=== PATIENT | male | born 1970 | race African-American/Black ===

== ENCOUNTER 2018-06-09 06:36 | Inpatient (IN) | payer MEDICARE, BC ==
[~2018-06-09] VITALS: Ht 185.4 cm; Wt 148.5 kg
--- NOTE | ~2018-06-09 | HEMODYNAMI ---
PATIENT:LEVI MOODY MEDICAL RECORD: [id number] : 66 LOCATION:[facility] D2127 ADMISSION DATE: 06/09/18 Generatedon:06/10/20188:10 Patient name: LEVI MOODY Patient #: [id number] SSN: : [birth year] Date of study: 06/10/2018 Page: Of Hemodynamic Procedure Report Patient Data Patient Demographics Procedure consent was obtained First Name: LEVI Gender: Male Last Name: HEIDY : 1970 Patient #: [id number] Age: 47 year(s) Race: Black Additional ID: [id number] Contact details [address]: [address] [place] [address] State: [place] City: [place] Zip code: [address] Past Medical History Allergies Allergen Reaction Date Comments Reported Morphine 06/10/2018 Admission Admission Data Admission Date: 06/09/2018 Admission Time: 8:03 Room #: D.2127 Weight (lbs.): 330.7 Weight (kg.): 150 Procedure Procedure Types Cath Procedure Diagnostic Procedure C [facility] w/Coronaries Procedure Description Procedure Date Procedure Date: 06/10/2018 Procedure Start Time: 8:00 Procedure End Time: 8:08 Procedure Staff Name Function Chino Medel MD Performing Physician Keagan Sheldon RT Monitor Candice Torres RT Scrub Treasure Carrington RN Nurse Procedure Data Cath Procedure Fluoroscopy Diagnostic fluoroscopy Total fluoroscopy Time: 2.4 time: 2.4 min min Diagnostic fluoroscopy Total fluoroscopy dose: 723 dose: 723 mGy mGy Contrast Material Contrast Material Type Amount (ml) Isovue 300 45 Entry Location Entry Primary Successful Side Size Upsize Upsize Entry Closure Almendarez ccessful Closure Location (Fr) 1 (Fr) 2 (Fr) Remarks Device Remarks Radial Right 6 Fr Mechanical artery Short Compression Estimated blood loss: 10 ml Diagnostic catheters Device Type Used For End Catheter Placement DIAGNOSTIC [place] 110cm 5 Procedure Fr catheter ([id number]) Procedure Complications No complications Procedure Medications Medication Administration Route Dosage 0.9% NaCl I.V. 100 ml/hr Oxygen etCO2 Nasal cannula 2 l/min Lidocaine 2% added to field 20 Heparin Flush Bag added to field 2 bags (1000units/500ml NS) Radial Cocktail added to field 1 syringe (Verapomil 2mg/Nitro 400mcg/Heparin 1500units) Versed I.V. 2 mg Fentanyl I.V. 100 mcg Versed I.V. 2 mg Fentanyl I.V. 50 mcg Versed I.V. 2 mg Versed I.V. 2 mg Hemodynamics Rest Heart Rate: 99 (bpm) Snapshots Pre Cath Intra NCS Post Cath Vital Signs Time Heart Resp SPO2 etCO2 NIBP (mmHg) Rhythm Pain Sedation Rate (ipm) (%) (mmHg) Status Level (bpm) 7:42:11 100 17 100 36.7 176/106(147) NSR 0 (11) 10(A) , No pain 7:46:58 97 14 96 27.7 168/106(135) NSR 0 (11) 10(A) , No pain 7:51:40 93 16 98 38.9 149/94(120) NSR 0 (11) 10(A) , No pain 7:56:19 95 18 98 12.7 168/96(118) NSR 0 (11) 10(A) , No pain 8:01:08 95 16 97 15.7 157/94(115) NSR 0 (11) 10(A) , No pain 8:05:44 114 20 98 16.4 155/84(116) NSR 0 (11) 10(A) , No pain Medications Time Medication Route Dose Verified Delivered Reason Notes Ef fectiveness by by 7:40:41 0.9% NaCl I.V. 100 Chino Treasure used for ml/hr Gianfranco Carrington independent film maker 7:40:47 Oxygen etCO2 2 l/min Chino Treasure used for Nasal Gianfranco Carrington procedure cannula RN 7:40:53 Lidocaine 2% added 20ml Chino Magana for local to vial Gianfranco Medel MD anesthetic field 7:40:57 Heparin Flush added 2 bags Chino Magana used for Bag to Gianfranco Medel MD procedure (1000units/500ml field NS) 7:41:04 Radial Cocktail added 1 Chino Magana used for (Verapomil to syringe Gianfranco Medel MD procedure 2mg/Nitro field 400mcg/Heparin 1500units) 7:57:24 Versed I.V. 2 mg Chino Treasure for Gianfranco Carrington sedation RN 7:57:29 Fentanyl I.V. 100 mcg Chino Treasure for Gianfranco Carrington sedation RN 8:00:52 Versed I.V. 2 mg Chino Treasure for Gianfranco Carrington sedation RN 8:00:57 Fentanyl I.V. 50 mcg Chino Treasure for Gianfranco Carrington sedation RN 8:02:32 Versed I.V. 2 mg Chino Treausre for Gianfranco Carrington sedation RN 8:04:11 Versed I.V. 2 mg Chino Treasure for Gianfranco Carrington sedation wire coiner Log Time Note 7:16:41 Keagan Sheldon RT(R) sent for patient. Start room use. 7:16:43 Diagnostic Cath status Elective 7:16:45 Signed procedure consent form obtained from patient. 7:16:48 Time tracking: Regular hours (M-F 7:00 - 5:00) 7:16:52 Plan of Care:Hemodynamics will remain stable., Cardiac rhythm will remain stable., Comfort level will be maintained., Respiratory function will remain adequate., Patient/ family verbilizes understanding of procedure., Procedure tolerated without complication., Recovers from procedure without complications.. 7:17:31 H&P Date Dictated: 06/09/2018 Within 30 days and on chart.. 7:23:00 Patient allergic to Morphine 7:32:17 Patient received from Med II to CCL 1 Alert and oriented. Tansferred to table in Supine position. 7:32:18 Warm blankets applied, and lindsey hugger turned on for patient comfort. 7:32:19 Correct patient and procedure confirmed by team. 7:32:20 ECG and BP/O2 sat monitors applied to patient. 7:40:27 Vital chart was started 7:40:41 0.9% NaCl 100 ml/hr I.V. was administered by Treasure Carrington RN; used for procedure; 7:40:47 Oxygen 2 l/min etCO2 Nasal cannula was administered by Treasure Carrington RN; used for procedure; 7:40:53 Lidocaine 2% 20ml vial added to field was administered by Chino Medel MD; for local anesthetic; 7:40:57 Heparin Flush Bag (1000units/500ml NS) 2 bags added to field was administered by Chino Medel MD; used for procedure; 7:41:04 Radial Cocktail (Verapomil 2mg/Nitro 400mcg/Heparin 1500units) 1 syringe added to field was administered by Chino Medel MD; used for procedure; 7:46:17 Baseline sample Acquired. 7:46:19 Rhythm: sinus rhythm 7:46:19 Full Disclosure recording started 7:46:20 Pre-procedure instructions explained to patient. 7:46:21 Pre-op teaching completed and patient verbalized understanding. 7:46:30 Family unavailable. 7:46:32 Patient NPO since Midnight. 7:46:33 Is the patient allergic to Iodine/contrast media? No. 7:46:35 Is patient on blood thinner?No 7:46:37 Patient diabetic? Yes. 7:46:39 If diabetic: On Metformin? No 7:46:46 Previous problem with sedation/anesthesia? No ? 7:47:03 Snore? Yes 7:47:04 Sleep apnea? Yes 7:47:05 Deviated septum? No 7:47:07 Opens mouth fully? Yes 7:47:18 Sticks out tongue? Yes 7:47:21 Airway obstruction? No ? 7:47:24 Dentures? No ? 7:47:33 Pre procedure: right dorsailis pedis pulse 1+ Palpable, but thready & weak; easily obliterated 7:47:36 Modified Ricardo's test Ulnar < 7 seconds 7:47:44 Patient pain scale 0/10 ?. 7:48:05 IV patent on arrival in right hand with 0.9% NaCl at O. 7:48:11 Lab results completed and on chart. 7:48:25 Right Radial & Right Groin area was prepped with chlora-prep and draped in sterile fashion 7:48:26 Alarms reviewed by R. N. 7:48:26 Sharps counted by scrub and verified by R.N. 7:48:33 Physician paged 7:52:14 Use device set Radial Dx or PCI 7:52:16 Tegaderm 4 x 4 (1366W) opened to sterile field. 7:52:17 ACIST Manifold (49788) opened to sterile field. 7:52:18 ACIST Hand Control (80818) opened to sterile field. 7:52:19 ACIST Syringe (55135) opened to sterile field. 7:52:19 Medline Cath Pack ([id number]) opened to sterile field. 7:52:20 Bag Decanter (2002S) opened to sterile field. 7:52:20 DIAGNOSTIC WIRE .035 260cm J wire (802143) opened to sterile field. 7:52:20 MBrace Wrist Support ([id number]) opened to sterile field. 7:52:21 No Cost sheath opened to the field. 7:54:22 Patient Weight : 330.7 lbs 7:56:34 --------ALL STOP TIME OUT------ 7:56:35 Final Timeout: patient, procedure, and site verified with staff and physician. All members of the team are in agreement. 7:56:39 Right Radial & Right Groin site verified by team. 7:56:41 Physical assessment completed. ASA score P 2 - A patient with mild systemic disease as per Chino Medel MD. 7:56:44 Sedation plan: IV Moderate Sedation Medication:Versed, Fentanyl 7:57:24 Versed 2 mg I.V. was administered by Treasure Carrington RN; for sedation; 7:57:29 Fentanyl 100 mcg I.V. was administered by Treasure Carrington RN; for sedation; 8:00:25 Procedure started. 8:00:29 Local anesthetic to right radial artery with Lidocaine 2% by Chino Medel MD.INITIAL ACCESS ONLY 8:00:47 A 6 Fr Short sheath was inserted into the Right Radial artery 8:00:52 Versed 2 mg I.V. was administered by Treasure Carrington RN; for sedation; 8:00:53 A DIAGNOSTIC [place] 110cm 5 Fr catheter (286875) was advanced over the wire and used for Procedure. 8:00:57 Fentanyl 50 mcg I.V. was administered by Treasure Carrington RN; for sedation; 8:02:13 LV angiography performed. 8:02:32 Versed 2 mg I.V. was administered by Treasure Carrington RN; for sedation; 8:02:33 LV gram done using STEWART 8:02:37 EF : 35 % 8:02:42 Injector settings: Ml/sec: 7, Volume: 15, 8:03:00 RCA angiography performed. 8:03:11 Catheter exchanged over wire. 8:04:11 Versed 2 mg I.V. was administered by Treasure Carrington RN; for sedation; 8:04:22 GUIDE 6FR XBLAD 3.5 catheter ([id number]) opened to sterile field. 8:04:33 6 Fr XBLAD 3.5 guide catheter was inserted over the wire 8:04:51 LCA angiography performed. 8:05:07 Catheter removed. 8:05:14 TR BAND Large ([id number]) opened to sterile field. 8:06:50 Sheath removed intact; hemostasis achieved with Mechanical Compression to the Right Radial artery. 8:06:53 Procedure ended.(Physican Out) 8:07:09 Fluoroscopy time 02.40 minutes. 8:07:12 Fluoroscopy dose: 723 mGy 8:07:12 Flurop Dose total: 723 8:07:16 Contrast amount:Isovue 300 45ml. 8:07:17 Sharps counted by scrub and verified by R.N. 8:07:19 TR band inflated with 11cc of air. 8:07:21 Insertion/operative site no bleeding no hematoma. 8:07:23 Post Procedure Pulses reassessed and unchanged 8:07:25 Post-procedure physical assessment completed. ASA score P 2 - A patient with mild systemic disease as per Chino Medel MD. 8:07:27 Post procedure rhythm: unchanged. 8:07:48 Estimated blood loss: 10 ml 8:07:49 Post procedure instruction explained to patient.Patient verbalizes understanding. 8:07:50 Patient needs reinforcement of post procedure teaching. 8:07:57 Procedure and supply charges have been captured, reviewed, submitted and are correct. 8:08:00 Procedure Complication : No complications 8:08:27 Vital chart was stopped 8:08:28 See physician's report for complete and final results. 8:08:31 Report given to Med II. 8:08:34 Patient transfered to Med II with Bed. 8:08:36 Procedure ended. 8:08:36 Full Disclosure recording stopped 8:08:51 End room use (Document Last) Device Usage Item Name Manufacture Quantity Catalog Hospital Part Current Minimal Lot# / Number Charge Number Stock Stock Serial# Code Tegaderm 4 1 1626W [id number] 306488 726206 5 x 4 (1626W) ACIST Acist 1 76081 161299 622040 987453 5 Manifold Medical (51573) Systems Inc ACIST Hand Acist 1 07449 961994 210830 200681 5 Control Medical (26538) Systems Inc ACIST Acist 1 57694 002832 259314 765508 20 Syringe Medical (07763) Systems Inc Medline Medline 1 [id number] 452392 70437 487748 5 Cath Pack ([id number]) Bag Microtek 1 2001S 583484 60571 117315 5 Decanter Medical Inc. (2001S) DIAGNOSTIC St Vinod 1 327901 860213 262065 241434 30 WIRE .035 260cm J wire (471691) MBrace Advanced 1 140-0250-00 228390 08800 890506 5 Wrist Vascular Support Dynamics ([id number]) DIAGNOSTIC Terumo 1 93-2826 429476 775519 765166 5 [place] 110cm 5 Fr catheter (453507) GUIDE 6FR Cardinal 1 [id number] 821491 100248 323144 10 XBLAD 3.5 Health catheter (11103603) TR BAND Terumo 1 [id number] 646486 797215 871903 40 Large ([id number]) Signature Audit [place] Stage Time Signature Unsigned Intra-Procedure 06/10/2018 Keagan Sheldon 8:10:42 AM RT(R) Signatures Monitor : Keagan Sheldon RT Signature : Date : Time : [place] [id number] [place] [address]
[2018-06-09] MEDS ORDERED: NORVASC10 MG PO (06:42)
[2018-06-09] MEDS ORDERED: ZYLOPRIM100 MG PO (06:42)
[2018-06-09] MEDS ORDERED: COREG25 MG PO (06:42)
[2018-06-09] MEDS ORDERED: PEPCID AC20 MG PO (06:42)
[2018-06-09] MEDS ORDERED: RENVELA800 MG PO (06:43)
[2018-06-09] MEDS ORDERED: PRAVACHOL20 MG PO (06:43)
[2018-06-09] MEDS ORDERED: HYDRALAZINE HC100 MG PO (06:43)
[2018-06-09] MEDS ORDERED: SENSIPAR60 MG PO (06:44)
--- NOTE | 2018-06-09 07:10 | NUR ---
REPORT GIVEN TO MILEY ROY
--- NOTE | 2018-06-09 07:12 | NUR ---
REPORT RECEIVED FROM OFF GOING NURSE MILEY ROSSI. PT OBSERVED SITTING UPRIGHT ON THE BEDSIDE. RESPIRATIONS EVEN AND SLIGHLTY LABORED. RT PLACED PT ON NC AT 5LPM. PT REPORTS SOB HAS "GOTTEN BETTER" SINCE INITIAL ONSET. PT DENIES ANY NEEDS AT THIS TIME. CALL LIGHT IN REACH. WILL CONTINUE TO MONITOR.
--- NOTE | 2018-06-09 07:42 | NUR ---
PT'S O2 SAT 90% WITH NC IN PLACE. PT REQUESTING TO BE SWITCHED BACK TO CPAP. KRISTIAN, WITH RT AT THE BEDSIDE TO SWITCH TO CPAP.
--- NOTE | 2018-06-09 08:08 | NUR ---
DR. AG AT THE BEDSIDE TO SEE PT AT THIS TIME.
--- NOTE | 2018-06-09 08:41 | MORECARE ---
CASE MANAGEMENT DISCHARGE SUMMARY PATIENT: LEVI MOODY UNIT: [id number] ADM DATE: 06/09/18 AGE: 55 : [birth year] SEX: M ROOM/BED: D.2127 AUTHOR: JAMES PATEL PHYSICIAN: REFERRING PHYSICIAN: SUNITA HINTON MD DATE OF SERVICE: 06/09/18 Discharge Plan Patient Name: [facility]EV[facility] MOODY [facility] [facility] 10/19/1962 Planned Disposition: Home or Self Care Anticipated Discharge Date: 06/11/18 Discharge Date: Expected LOS: 2 Initial Reviewer: [email or web address] Initial Review Date: 06/09/2018 Generated: 06/09/18 9:41 am DCPIA - Discharge Planning Initial Assessment Updated by [email or web address]: Nilda Santiago on 06/09/18 8:40 am * Is the patient Alert and Oriented? Yes * How many steps to enter\exit or inside your home? * PCP Dr. Antonio Elizabeth * Pharmacy [facility] * Preadmission Environment Home with Family * ADLs Independent * Equipment CPAP * List name and contact numbers for known caregivers / representatives who currently or will assist patient after discharge: Ewelina Moody - spouse - [phone] * Verbal permission to speak to the caregivers and representatives has been obtained from the patient. Yes * Community resources currently utilized Other * Please name any agencies selected above. M-W-F Hemodialysis @ [facility]. Patient transports himself to and from HD. * Additional services required to return to the preadmission environment? No * Can the patient safely return to the preadmission environment? Yes * Has this patient been hospitalized within the prior 30 days at any hospital? No Patient Name: LEVI MOODY Page 03515 at 0841 All edits/amendments must be made on the electronic document DICTATION DATE: 06/09/18840 LICENSED APPRAISER: NOEL 06/09/18840 RPT#: [id number] DC DATE: STATUS: ADM IN [facility] [address] [place] [address] END OF REPORT
--- NOTE | 2018-06-09 08:48 | MORECARE ---
CASE MANAGEMENT DISCHARGE SUMMARY PATIENT: LEVI MOODY UNIT: [id number] ADM DATE: 06/09/18 AGE: 55 : [birth year] SEX: M ROOM/BED: D.5050 AUTHOR: JAMES PATEL PHYSICIAN: REFERRING PHYSICIAN: SUNITA HINTON MD DATE OF SERVICE: 06/09/18 Discharge Plan Patient Name: LEVI MOODY [facility]: [facility]:[place] : 10/19/1962 Planned Disposition: Home or Self Care Anticipated Discharge Date: 06/11/18 Discharge Date: Expected LOS: 2 Initial Reviewer: [email or web address] Initial Review Date: 06/09/2018 Generated: 06/09/18 9:48 am DCP- Discharge Planning Updated by [email or web address]: Nilda Santiago on 06/09/18 7:[address] Patient Name: LEVI MOODY Admission Status: ER Accout number: [id number] Admission Date: 06-09-2018 : 10-19-1962 Admission Diagnosis: Attending: SUNITA HINTON Current LOS: 1 Anticipated DC Date: 06-11-2018 Planned Disposition: Home or Self Care - Home with his . Primary Insurance: Medicare Discharge Planning Comments: CM met with patient who is on a cpap mask and unable to answer questions. CM called patient's , Eric to complete initial dc planning assessment. CM educated her on the CM role and verbal consent given by Edwenter to complete assessment. Patient lives at home with her and is independent in his care at home. He has a CPAP that he uses at home at night and as needed. He goes to [facility] every and he transports himself to and from the Dialysis center. His stated she will transport him home at time of discharge. At discharge patient will return home with her and she feels this is a safe discharge. CM discussed availability of home health, rehab services, and medical equipment. She did not feel the patient would need any additional services to return home. CM will continue to follow and will assist as needed with dc plans/needs. Climatology Teacher: Nilda Santiago RN, [facility] DCPIA - Discharge Planning Initial Assessment Updated by [email or web address]: Nilda Santiago on 06/09/18 8:40 am * Is the patient Alert and Oriented? Yes * How many steps to enter\exit or inside your home? * PCP Dr. Antonio Elizabeth * Pharmacy [facility] * Preadmission Environment Home with Family * ADLs Independent * Equipment CPAP * List name and contact numbers for known caregivers / representatives who currently or will assist patient after discharge: Ewelina Moody - spouse - [phone] * Verbal permission to speak to the caregivers and representatives has been obtained from the patient. Yes * Community resources currently utilized Other * Please name any agencies selected above. M-W-F Hemodialysis @ [facility]. Patient transports himself to and from HD. * Additional services required to return to the preadmission environment? No * Can the patient safely return to the preadmission environment? Yes * Has this patient been hospitalized within the prior 30 days at any hospital? No Last DP export: 06/09/18 7:41 a Patient Name: LEVI MOODY Page 61927 at 0848 All edits/amendments must be made on the electronic document DICTATION DATE: 06/09/1848 HVAC/R INSTRUCTOR: NOEL 06/09/1848 RPT#: [id number] DC DATE: STATUS: ADM IN [facility] [address] [place] [address] END OF REPORT
--- NOTE | 2018-06-09 08:56 | NUR ---
PHARMACY TO SEND ORDERED IV FLUIDS TO ROOM 2126.
--- NOTE | 2018-06-09 09:12 | NUR ---
THIS NURSE WAS TRANSPORTING PT TO ASSIGNED ROOM, DIALYSIS UNIT CALLED AND ASKED THAT PT BE TRANSPORTED TO DIALYSIS AT THAT TIME. PT TAKEN TO DIALYSIS. RECIEVED NURSE SANA NOTIFIED OF THE ABOVE AND THAT ORDERED IV FLUIDS WOULD BE SENT TO FLOOR FROM PHARMACY.
[2018-06-09] MEDS ORDERED: VELPHORO500 MG PO (14:00)
--- NOTE | 2018-06-09 14:00 | NUR ---
ALERT AND ORIENTED X4. ARRIVE TO ROOM VIA WHEELCHAIR FROM DIALYSIS. FAMILY AT BEDSIDE. 6L OFF DURING DIALYSIS. SOB IMPROVED PER PATIENT. RT HAND IV 20G INFUSING CALCIUM ORDERED. GIVEN LATE DUE TO PATIENT UNAVAILABLE. CONTINUE ADMISSION PROCESS. RECIEVES LOVENOX INJ. CONTINUE SAFETY PRECAUTIONS.
[2018-06-09 14:24] VITALS: BP 144/72; BMI 44.4
[2018-06-09 19:00] VITALS: BP 166/98
[2018-06-10 04:00] VITALS: BP 148/101
--- NOTE | 2018-06-10 08:34 | NUR ---
ARRIVE BACK TO ROOM VIA BED FROM SALES RECRUITMENT SPECIALIST. SEDATED, AROUSES TO STIMULI. BP-148/93, HR-89, O2-93% WITH 2L NC. TR BAND RT WRIST. FREE FROM BLEEDING. FREE FROM HEMATOMA. CONTINUE PLAN OF CARE AND SAFETY PRECAUTIONS.
[2018-06-10 09:27] LABS: HEMOGLOBIN 8.2 g/dL (13.5-17.5); LYMPHOCYTES 8.9 % (15-50); MCH 32.4 pg (26.0-34.0); MCHC 34.2 g/dL (31.0-37.0); MCV 94.9 fL (80.0-100.0); MEAN PLATELET VOLUME 9.3 fL (7.4-10.4); NEUTROPHILS 80.6 % (40-80); PLATELET COUNT 191 10x3/uL (130-400); RBC 2.53 10x6/uL (4.20-6.10); RDW 14.5 % (11.5-14.5); WBC 12.1 10x3/uL (4.8-10.8)
[2018-06-10 09:43] LABS: ANION GAP 20.9 mmol/L (8-16); CALCIUM 7.1 mg/dL (8.5-10.1); CARBON DIOXIDE 19.1 mmol/L (21.0-32.0); CREATININE - SERUM 10.5 mg/dL (0.6-1.3); PHOSPHOROUS 5.5 mg/dL (2.5-4.9)
--- NOTE | 2018-06-10 10:20 | CN ---
PATIENT NAME:LEVI MOODY MEDICAL RECORD: [id number] : 66 LOCATION:D. D.2127 ADMIT DATE: 06/09/18 ACCOUNT: [id number] CONSULTING PHYSICIAN: EUGENE DALEY MD REFERRING PHYSICIAN: SUNITA HINTON MD DATE OF CONSULTATION: 06/09/2018 CARDIOLOGY CONSULTATION DATE OF SERVICE: 06/09/2018 DIAGNOSES: 1. Non-Q-wave myocardial infarction. 2. Cardiomyopathy. 3. Coronary artery disease. 4. Hypertension. 5. Hyperlipidemia. 6. End-stage renal failure, on dialysis. HISTORY OF PRESENT ILLNESS: This is a gentleman who was transferred here due to shortness of breath and chest discomfort. His troponin is elevated. He has no history of ischemic heart disease. His symptomatology has been going on for the past 2-3 weeks in an escalating fashion. He has hypertension for which he is on amlodipine, Coreg, and hydralazine. He has hyperlipidemia for which he is on Pravachol. Echocardiogram revealed an ejection fraction in the 35% range with anteroapical hypokinesis suggestive of coronary disease and discrete wall motion abnormalities. PHYSICAL EXAMINATION: GENERAL APPEARANCE: Well-nourished, well-developed, appears stated age. Level of distress, comfortable. PSYCHIATRIC: Mental status, alert, normal affect. Orientation, oriented to time, place and person. EYES: Lids and conjunctiva, noninjected. No discharge, no pallor. ENT: Lips, teeth, gums, normal dentition. Oropharynx, no cyanosis, no pallor. NECK: Carotid arteries, bilateral normal upstroke, no bruits, no thrills. JUGULAR VEINS: No jugular venous pressure or distention. CERVICAL LYMPH NODES: Nontender, nonenlarged. THYROID: Not enlarged. Nontender. No nodules. LUNGS: Respiratory effort, unlabored. CHEST: Normal curvature. No thoracic deformity. No chest wall tenderness. Percussion, resonant. Auscultation, clear. No wheezes, no rales, no rhonchi. CARDIOVASCULAR: Precordial exam, nondisplaced. No heaves or pericardial thrills. Rate and rhythm, regular. Heart sounds, normal S1, normal S2. No S3, no gallop, no rub. Systolic murmur, not heard. Diastolic murmur, not heard. EXTREMITIES: No cyanosis, no edema. Peripheral pulses, full and equal in all extremities, except as noted. No bruits appreciated. ABDOMEN: Soft, nondistended. Normal aorta. No bruit. Nontender. No masses. Liver, nontender, no hepatomegaly. Spleen, nontender, no splenomegaly. MUSCULOSKELETAL: No joint tenderness. No joint swelling. No erythema. NEUROLOGICAL: Normal gait, normal strength, normal tone. SKIN: Warm and dry. OVERALL IMPRESSION: Elevated troponin, chest discomfort, cardiomyopathy, most likely has advanced hemodynamically significant coronary artery disease. We CONSULT REPORT [id number] LEVI MOODY will proceed with coronary angiography in the a.m. Further care depends upon the findings of the angiography. TRANSINT:[id number] Voice Confirmation ID: [id number] DOCUMENT ID: [id number] EUGENE DALEY MD at 1020 CC: [id number] DICTATION DATE: 06/09/18 1634 SOFTWARE QUALITY ASSURANCE SPECIALIST: 06/09/18 1746 ADM IN [place] [address] [place] [address]
--- NOTE | 2018-06-10 10:23 | OP ---
PATIENT NAME: LEVI MOODY MEDICAL RECORD: [id number] :66 LOCATION:D.M2 D.2127 ADMISSION DATE:06/09/18 SURGEON: EUGENE DLAEY MD DATE OF OPERATION: 06/10/2018 PROCEDURES: 1. Left heart catheterization. 2. Selective coronary angiography. 3. Left ventriculogram. INDICATION: Cardiomyopathy, increased troponin. PROCEDURE IN DETAIL: After informed consent was obtained and after a detailed description of risks, benefits as well as alternative therapies, the patient elected to proceed with angiogram and heart catheterization. The right radial area was prepped and draped in normal sterile fashion. Right radial artery was cannulated via modified Seldinger technique with placement of 5-Finnish sheath. All catheters exchanged through this sheath. FINDINGS: The left ventriculogram was performed in standard 30-degree STEWART view, reveals global hypokinesis throughout all segments. Overall ejection fraction is 30% to 35%. SELECTIVE CORONARY ANGIOGRAPHY: Left main, left anterior descending, left circumflex, right coronary artery are smooth-walled vessels with no angiographic evidence of coronary artery disease. OVERALL IMPRESSION: Nonischemic cardiomyopathy, most likely secondary to hypertensive heart disease. Continue medical management of the hypertension, cardiomyopathy, and congestive heart failure risk factors. TRANSINT:[id number] Voice Confirmation ID: [id number] DOCUMENT ID: [id number] EUGENE DALEY MD at 1023 CC: [id number] DICTATION DATE: 06/10/18 0808 TRAFFIC ADMINISTRATOR: 06/10/18 0821 ADM IN [place] [address] [place] [address]
--- NOTE | 2018-06-10 10:23 | EC ---
PATIENT:LEVI MOODY DATE OF SERVICE: 06/09/18 SEX: M MEDICAL RECORD: [id number] DATE OF : [birth year] LOCATION:D.M2 D.212 AGE OF PATIENT: 47 ADMISSION DATE: 06/09/18 REFERRING PHYSICIAN: INTERPRETING PHYSICIAN: EUGENE MEDEL MD ECHOCARDIOGRAM REPORT ECHO CHARGES 4 ECHO COMPLETE Date: 06/09/18 CLINICAL DIAGNOSIS: LA ECHOCARDIOGRAPHIC MEASUREMENTS (adult normal given) AC root (d.<3.7cm) 3.6 cm LV Septum d (<1.2 cm> 1.2 cm Valve Excursion 0.8 cm LV Septum (systole) 1.8 cm Left Atria (s.<4.0cm> 4.5 cm LVPW d(<1.2cm) 1.6 cm RV (d.<2.3cm) 3.6 cm LVPW (sytole) 1.8 cm LV diastole(<5.6CM) 6.9 cm MV E-F(>70mm/sec) cm LV systole 6.0 cm LVOT Diameter 1.9 cm MV exc.(>10mm) cm Est.ejection fraction (50-75%) % DOPPLER: LVIT cm/sec A 30 cm/sec E 57 cm/sec LA cm/sec RVSP 26.3 mmHg LVOT 107 cm/sec AOP1/2T m/s Asc. Ao 233 cm/sec RVOT 115 cm/sec RA cm/sec PA 110 cm/sec AV Gradient Peak 21.7 mmHg AV Mean 13.7 mmHg AV Area 1.7 cm MV Gradient Peak 1.8 mmHg MV Mean 1.1 mmHg MV Area cm COMMENTS: Water Proofer: Galdino [facility] Door Glass Installer: Milvia Medel TAPE# PACS Pericardial Effusion N DATE OF SERVICE: 06/09/2018 FINDINGS: 1. Left ventricular chamber size is mild to moderately dilated. Left ventricular systolic function is moderately reduced. Overall ejection fraction is 35%. 2. Left atrium is enlarged at 4.5 cm. Right atrium and right ventricle chamber sizes are as well mildly dilated. 3. Valvular structures have normal structure and motion. 4. Doppler interrogation only reveals mild tricuspid regurgitation. No other ECHOCARDIOGRAM REPORT [id number] LEVI MOODY valvular insufficiency or stenosis. Pulmonary systolic pressure is normal, estimated at 26 mmHg. 5. No evidence of pericardial effusion or left ventricular thrombus. TRANSINT:[id number] Voice Confirmation ID: [id number] DOCUMENT ID: [id number] EUGENE MEDEL MD at 1023 CC: [id number] DICTATION DATE: 06/09/18 152 CYLINDER DIE MACHINE OPERATOR: 06/09/18 1716 ADM IN [facility] [address] [place] [address]
--- NOTE | 2018-06-10 11:36 | NUR ---
ALERT AND ORIENTED X4. RECIEVING DIALYSIS. HR CHANGE TO AFLUTTER. JOHN BETTENCOURT NOTIFIED. DIALYSIS STOPPED PER JOHN BETTENCOURT.
[2018-06-10 13:31] VITALS: Ht 185.4 cm; Wt 148.5 kg
[2018-06-10 19:00] VITALS: BP 103/62
--- NOTE | 2018-06-10 19:30 | NUR ---
RESUMING CARE. PT LAYING IN BED EYES CLOSED WITH CPAP ON BREATH SOUNDS EVEN CL IN REACH WILL CONT TO MONITOR
[2018-06-11] VITALS: BP 112/66
--- NOTE | 2018-06-11 03:49 | NUR ---
RN NOTE: PATIENT APPEARS TO BE SLEEPING. RESPIRATIONS ARE EVEN AND UNLABORED. NO S/S OF DISTRESS. NO C/O PAIN. CALL LIGHT WITHIN REACH. WILL CPOC.
[2018-06-11 04:00] VITALS: BP 138/79
[2018-06-11 05:54] LABS: BASOPHILS 0.4 % (0-2); EOSINOPHILS 1.3 % (0-7); IMMATURE GRANULOCYTES 0.3 % (0-5); LYMPHOCYTES 18.2 % (15-50); MCH 31.5 pg (26.0-34.0); MCHC 32.7 g/dL (31.0-37.0); MCV 96.5 fL (80.0-100.0); MEAN PLATELET VOLUME 10.2 fL (7.4-10.4); MONOCYTES 11.3 % (2-11); NEUTROPHILS 68.5 % (40-80); RDW 15.2 % (11.5-14.5); WBC 10.3 10x3/uL (4.8-10.8)
[2018-06-11 05:56] LABS: HEMATOCRIT 30.3 % (42.0-54.0); HEMOGLOBIN 9.9 g/dL (13.5-17.5); PLATELET COUNT 237 10x3/uL (130-400); RBC 3.14 10x6/uL (4.20-6.10)
[2018-06-11 06:44] LABS: ALBUMIN 3.2 g/dL (3.4-5.0); BILIRUBIN - TOTAL 0.38 mg/dL (0.2-1.3); PROTEIN - SERUM 8.1 g/dL (6.4-8.2)
[2018-06-11 06:48] LABS: ANION GAP 23.9 mmol/L (8-16); CALCIUM 9.6 mg/dL (8.5-10.1); CARBON DIOXIDE 24.6 mmol/L (21.0-32.0); CREATININE - SERUM 16.4 mg/dL (0.6-1.3); PHOSPHOROUS 9.2 mg/dL (2.5-4.9); POTASSIUM - SERUM 5.5 mmol/L (3.5-5.1)
[2018-06-11 08:19] VITALS: BP 106/73
--- NOTE | 2018-06-11 10:23 | NUR ---
ALERT AND ORIENTED X4. TAKEN TO DIALYSIS VIA WHEELCHAIR. CONTINUE PLAN OF CARE AND SAFETY PRECAUTIONS.
[2018-06-11 16:41] VITALS: BP 106/74
--- NOTE | 2018-06-11 16:54 | NUR ---
ALERT AND ORIENTED X4. STANDING WEIGHT OBTAINED AND RECORDED. SITTING UP IN BED. SINUS TACH 135 ON TELEMETRY. RT HAND IV INFILTRATED. DC RT HAND IV TIP INTACT. HOME CPAP ON. DENIES ANY NEEDS. CONTINUE PLAN OF CARE AND SAFETY PRECAUTIONS.
--- NOTE | 2018-06-11 17:11 | MORECARE ---
CASE MANAGEMENT DISCHARGE SUMMARY PATIENT: LEVI MOODY UNIT: [id number] ADM DATE: 06/09/18 AGE: 47 : [birth year] SEX: M ROOM/BED: D.8477 AUTHOR: JAMES PATEL PHYSICIAN: REFERRING PHYSICIAN: SUNITA HINTON MD DATE OF SERVICE: 06/11/18 Discharge Plan Patient Name: LEVI MOODY Facility: [facility]:[place] : 1970 Planned Disposition: Home or Self Care Anticipated Discharge Date: 06/11/18 Discharge Date: Expected LOS: 2 Initial Reviewer: [email or web address] Initial Review Date: 06/09/2018 Generated: 06/11/18 6:11 pm Comments DCP- Discharge Planning Updated by [email or web address]: Surjit Rodriguez on 06/11/18 4:[address] Patient Name: LEVI MOODY Encounter No: [id number] : 1970 Primary Insurance: MEDICARE A & B Anticipated DC Date: 06-11-2018 Planned Disposition: Home or Self Care DCP follow-up note: CM MET WITH PT IN ROOM TO DISCUSS DISCHARGE NEEDS AND PLANNING. CM DISCUSSED AVAILABILITY OF HOME HEALTH, REHAB SERVICES AND MEDICAL EQUIPMENT. PT WOULD LIKE A CANE, UNDERSTANDS INSURANCE WILL NOT COVER COSTS OF CANE AND PT WILL SHOP AND FIND ONE PRIVATELY. PT DENIES DISCHARGE NEEDS. SPOUSE TO TRANSPORT HOME AT DISCHARGE. IMPORTANT MESSAGE FROM MEDICARE PROVIDED AND EXPLAINED. CM TO FOLLOW AND ASSIST NEEDED. TRIP HENAO DCP- Discharge Planning Updated by [email or web address]: Nilda Santiago on 06/09/18 7:[address] Patient Name: LEVI MOODY Admission Status: ER Accout number: [id number] Admission Date: 06-09-2018 : 10-19-1962 Admission Diagnosis: Attending: SUNITA HINTON Current LOS: 1 Anticipated DC Date: 06-11-2018 Planned Disposition: Home or Self Care - Home with his . Primary Insurance: Medicare Discharge Planning Comments: CM met with patient who is on a cpap mask and unable to answer questions. CM called patient's , Edwenter to complete initial dc planning assessment. CM educated her on the CM role and verbal consent given by Edwenter to complete assessment. Patient lives at home with her and is independent in his care at home. He has a CPAP that he uses at home at night and as needed. He goes to [facility] every M-W-F and he transports himself to and from the Dialysis center. His stated she will transport him home at time of discharge. At discharge patient will return home with her and she feels this is a safe discharge. CM discussed availability of home health, rehab services, and medical equipment. She did not feel the patient would need any additional services to return home. CM will continue to follow and will assist as needed with dc plans/needs. Paint Spray Tender: Nilda Santiago RN, [facility] DCPIA - Discharge Planning Initial Assessment Updated by [email or web address]: Nilda Santiago on 06/09/18 8:40 am * Is the patient Alert and Oriented? Yes * How many steps to enter\exit or inside your home? * PCP Dr. Antonio Elizabeth * Pharmacy [facility] * Preadmission Environment Home with Family * ADLs Independent * Equipment CPAP * List name and contact numbers for known caregivers / representatives who currently or will assist patient after discharge: Ewelina Moody - spouse - [phone] * Verbal permission to speak to the caregivers and representatives has been obtained from the patient. Yes * Community resources currently utilized Other * Please name any agencies selected above. M-W-F Hemodialysis @ [facility]. Patient transports himself to and from HD. * Additional services required to return to the preadmission environment? No * Can the patient safely return to the preadmission environment? Yes * Has this patient been hospitalized within the prior 30 days at any hospital? No Coverage Notice Reviewer: [id number] - Surjit Rodriguez Notice Issued Date-Time: 06/11/2018 16:55 Notice Type: IM Discharge Notice Notice Delivered To: Patient Relationship to Patient: Welder Fitter Name: Delivery Method: HAND - Hand Delivered Darlyn Days: Prior Verbal Notification: Recipient Understood Notice: Yes Recipient Signature: Yes Med Rec Note Co-signed by Attending: Coverage Notice Comment: Last DP export: 06/09/18 7:48 a Patient Name: LEVI MOODY Page [id number] at 1711 All edits/amendments must be made on the electronic document DICTATION DATE: 06/11/181710 POLICY ISSUE CLERK: DM 06/11/181710 RPT#: [id number] DC DATE: STATUS: ADM IN [facility] [address] [place] [address] END OF REPORT
--- NOTE | 2018-06-11 19:29 | NUR ---
INTRODUCED SELF TO PATIENT, AO X 4, RESTING IN BED WATCHING TV. RESP EVEN AND UNLABORED. PLACED BLANKET ACROSS LEGS. BED IN LOWEST POSITION, CALL LIGHT IN REACH. NO S/SX OF ANY PAIN OR DISCOMFORT.
[2018-06-11 20:41] VITALS: BP 130/67
--- NOTE | 2018-06-11 21:31 | NUR ---
CALLED RENAL TRACK WORKER, PT STATES WANTS HIS CARDIZEM XT. CARDIOLOGY TO SEE PATIENT TOMORROW PER TRACK WORKER.
[2018-06-12] VITALS: BP 107/57
--- NOTE | 2018-06-12 03:54 | NUR ---
PT HIT CALL LIGHT, WAS SLEEPING WITH CPAP ON, REQUESTED SOME WATER AND SOME JELLO. PT DENIES ANY S/SX OF DISCOMFORT OR PAIN AT THIS TIME, PT PLACED CPAP BACK ON.
[2018-06-12 04:55] VITALS: BP 115/76
--- NOTE | 2018-06-12 05:39 | NUR ---
PATIENT WANTED TO TAKE A SHOWER, TOOK OFF TELEMTRY, NOTIFIED TECH. LAB IN ROOM WITH PATIENT. NO S/SX OF PAIN OR DISCOMFORT. BED IN LOWEST POSITION, CALL LIGHT WITHIN REACH.
--- NOTE | 2018-06-12 06:02 | NUR ---
PATIENT PUT BACK ON TELEMETRY, ICE CHIPS GIVEN.
[2018-06-12 06:15] LABS: BASOPHILS 0.4 % (0-2); EOSINOPHILS 1.3 % (0-7); HEMATOCRIT 32.9 % (42.0-54.0); HEMOGLOBIN 10.6 g/dL (13.5-17.5); IMMATURE GRANULOCYTES 0.2 % (0-5); LYMPHOCYTES 21.7 % (15-50); MCH 31.3 pg (26.0-34.0); MCHC 32.2 g/dL (31.0-37.0); MCV 97.1 fL (80.0-100.0); MEAN PLATELET VOLUME 10.4 fL (7.4-10.4); NEUTROPHILS 64.4 % (40-80); RBC 3.39 10x6/uL (4.20-6.10); WBC 12.4 10x3/uL (4.8-10.8)
[2018-06-12 06:35] LABS: PLATELET COUNT 291 10x3/uL (130-400)
[2018-06-12 06:40] LABS: ALBUMIN 3.5 g/dL (3.4-5.0); ANION GAP 22.2 mmol/L (8-16); BILIRUBIN - TOTAL 0.46 mg/dL (0.2-1.3); CALCIUM 9.6 mg/dL (8.5-10.1); CREATININE - SERUM 13.7 mg/dL (0.6-1.3); POTASSIUM - SERUM 5.2 mmol/L (3.5-5.1); PROTEIN - SERUM 8.5 g/dL (6.4-8.2)
--- NOTE | 2018-06-12 07:10 | NUR ---
RECEIVED REPORT FROM EPIC BEACON ANALYST. PATIENT AWAKE ALERT AND ORIENTED X 4. VITAL SIGNS ARE GOOD. PATIENT DENIES ANY NEEDS OR PAIN. WILL CONTINUE WITH PLAN OF CARE. SR UP X 2 BED IN LOW POSITION AND CALL LIGHT IN REACH.
[2018-06-12 08:12] VITALS: BP 128/79
[2018-06-12] MEDS ORDERED: CARDIZEM LA120 MG PO (09:35)
--- NOTE | 2018-06-12 09:57 | NUR ---
PATIENT UNCHANGED. WILL CONTINUE TO MONITOR.
--- NOTE | 2018-06-12 14:02 | NUR ---
PATIENT RETURNED FROM DIALYSIS. VITAL SIGNS ARE GOOD. PATIENT DENIES ANY NEEDS OR PAIN. WILL CONTINUE TO MONITOR.
--- NOTE | 2018-06-12 14:02 | NUR ---
PATIENT TO DIALYSIS VIA BED AND HOSPITAL PERSONNEL. VITAL SIGNS AE GOOD AND PATIENT IS STABLE.
--- NOTE | 2018-06-12 15:17 | MORECARE ---
CASE MANAGEMENT DISCHARGE SUMMARY PATIENT: LEVI MOODY UNIT: [id number] ADM DATE: 06/09/18 AGE: 47 : 66 SEX: M ROOM/BED: D.9830 AUTHOR: JAMES PATEL PHYSICIAN: REFERRING PHYSICIAN: SUNITA HINTON MD DATE OF SERVICE: 06/12/18 Discharge Plan Patient Name: LEVI MOODY Facility: [facility]:[place] : 1970 Planned Disposition: Home or Self Care Anticipated Discharge Date: 06/12/18 Discharge Date: Expected LOS: 3 Initial Reviewer: [email or web address] Initial Review Date: 06/09/2018 Generated: 06/12/18 4:16 pm Comments DCP- Discharge Planning Updated by [email or web address]: Surjit Rodriguez on 06/11/18 4:[address] Patient Name: LEVI MOODY Encounter No: [id number] : 1970 Primary Insurance: MEDICARE A & B Anticipated DC Date: 06-11-2018 Planned Disposition: Home or Self Care DCP follow-up note: CM MET WITH PT IN ROOM TO DISCUSS DISCHARGE NEEDS AND PLANNING. CM DISCUSSED AVAILABILITY OF HOME HEALTH, REHAB SERVICES AND MEDICAL EQUIPMENT. PT WOULD LIKE A CANE, UNDERSTANDS INSURANCE WILL NOT COVER COSTS OF CANE AND PT WILL SHOP AND FIND ONE PRIVATELY. PT DENIES DISCHARGE NEEDS. SPOUSE TO TRANSPORT HOME AT DISCHARGE. IMPORTANT MESSAGE FROM MEDICARE PROVIDED AND EXPLAINED. CM TO FOLLOW AND ASSIST NEEDED. TRIP HENAO DCP- Discharge Planning Updated by [email or web address]: Nilda Santiago on 06/09/18 7:[address] Patient Name: LEVI MOODY Admission Status: ER Accout number: [id number] Admission Date: 06-09-2018 : 10-19-1962 Admission Diagnosis: Attending: SUNITA HINTON Current LOS: 1 Anticipated DC Date: 06-11-2018 Planned Disposition: Home or Self Care - Home with his . Primary Insurance: Medicare Discharge Planning Comments: CM met with patient who is on a cpap mask and unable to answer questions. CM called patient's , Edwenter to complete initial dc planning assessment. CM educated her on the CM role and verbal consent given by Edwenter to complete assessment. Patient lives at home with her and is independent in his care at home. He has a CPAP that he uses at home at night and as needed. He goes to [facility] every M-W-F and he transports himself to and from the Dialysis center. His stated she will transport him home at time of discharge. At discharge patient will return home with her and she feels this is a safe discharge. CM discussed availability of home health, rehab services, and medical equipment. She did not feel the patient would need any additional services to return home. CM will continue to follow and will assist as needed with dc plans/needs. Jute Bag Clipper: Nilda Santiago RN, [facility] DCPIA - Discharge Planning Initial Assessment Updated by [email or web address]: Nilda Santiago on 06/09/18 8:40 am * Is the patient Alert and Oriented? Yes * How many steps to enter\exit or inside your home? * PCP Dr. Antonio Elizabeth * Pharmacy [facility] * Preadmission Environment Home with Family * ADLs Independent * Equipment CPAP * List name and contact numbers for known caregivers / representatives who currently or will assist patient after discharge: Ewelina Moody - spouse - [phone] * Verbal permission to speak to the caregivers and representatives has been obtained from the patient. Yes * Community resources currently utilized Other * Please name any agencies selected above. M-W-F Hemodialysis @ [facility]. Patient transports himself to and from HD. * Additional services required to return to the preadmission environment? No * Can the patient safely return to the preadmission environment? Yes * Has this patient been hospitalized within the prior 30 days at any hospital? No Coverage Notice Reviewer: [id number] - Surjit Rodriguez Notice Issued Date-Time: 06/11/2018 16:55 Notice Type: IM Discharge Notice Notice Delivered To: Patient Relationship to Patient: Child Care Associate Name: Delivery Method: HAND - Hand Delivered Darlyn Days: Prior Verbal Notification: Recipient Understood Notice: Yes Recipient Signature: Yes Med Rec Note Co-signed by Attending: Coverage Notice Comment: Last DP export: 06/11/18 4:11 p Patient Name: LEVI MOODY Page [phone] at 1517 All edits/amendments must be made on the electronic document DICTATION DATE: 06/12/181515 SALES AND EVENTS COORDINATOR: DM 06/12/181515 RPT#: [id number] DC DATE: STATUS: ADM IN [facility] [address] [place] [address] END OF REPORT
--- NOTE | 2018-06-12 15:38 | NUR ---
ORDER RECIEVED FOR DC. PATIENT IS STABLE AND VITAL SIGNS ARE GOOD. DISCHARGE INSTRUCTIONS GIVEN, VERBALIZED UNDERSTANDING AND DC PAPERS SIGNED. PATIENT REFUSED WC TO FRONT DOOR. PATIENT AMBULATE TO FRONT TO PRIVATE CAR AND SELF CARE AT HOME.
== END 2018-06-12 15:40 | disposition home or self-care (01) | DRG 286 ==
LOC: D.ER 06:36 → D.M2 08:03 → D.EDHOLD 08:03 → EDBD 08:03 → D.M2 08:22
PROVIDERS: Internal Medicine Interventional Cardiology; Internal Medicine Nephrology; ADMIT Internal Medicine Nephrology
PROC: 5A1D70Z Performance of Urinary Filtration, Intermittent, Less than 6 Hours Per Day (ICD-10-PCS; 2018-06-09)
PROC: B2151ZZ Fluoroscopy of Left Heart using Low Osmolar Contrast (ICD-10-PCS; 2018-06-10)
PROC: 4A023N7 Measurement of Cardiac Sampling and Pressure, Left Heart, Percutaneous Approach (ICD-10-PCS; 2018-06-10)
PROC: B2111ZZ Fluoroscopy of Multiple Coronary Arteries using Low Osmolar Contrast (ICD-10-PCS; principal; 2018-06-10 07:30)
DX: I13.2 Hypertensive heart and chronic kidney disease with heart failure and with stage 5 chronic kidney disease, or end stage renal disease (principal); N18.6 End stage renal disease; I48.92 Unspecified atrial flutter; I42.9 Cardiomyopathy, unspecified; E11.22 Type 2 diabetes mellitus with diabetic chronic kidney disease; Z99.2 Dependence on renal dialysis; E87.5 Hyperkalemia; I50.9 Heart failure, unspecified; E83.39 Other disorders of phosphorus metabolism; I25.10 Atherosclerotic heart disease of native coronary artery without angina pectoris; E78.5 Hyperlipidemia, unspecified

== ENCOUNTER 2018-08-17 10:13 | Observation (INO) | payer MEDICARE, BC ==
[2018-08-17] VITALS (7 sets, daily range): BP systolic 122–136; BP diastolic 79–95; BMI 43.3
[~2018-08-17] VITALS: Ht 185.4 cm; Wt 151.4 kg
[~2018-08-17 10:13] MED LIST: CARDIZEM LA120 MG PO; COREG25 MG PO; HYDRALAZINE HC100 MG PO; NORVASC10 MG PO; PEPCID AC20 MG PO; PRAVACHOL20 MG PO; RENVELA800 MG PO; SENSIPAR60 MG PO; VELPHORO500 MG PO; ZYLOPRIM100 MG PO
[2018-08-17] MEDS ORDERED: COZAAR100 MG PO (14:00)
[2018-08-17] MEDS ORDERED: OMEPRAZOLE40 MG PO (14:02)
--- NOTE | 2018-08-17 14:29 | NUR ---
PT ARRIVED TO FLOOR A&O SITTING UP IN BEDSIDE CHAIR. STANDING WEIGHT PERFORMED FOR ACCURACY AND CHARTED AT 328#. ON FLOOR ROUNDING AND WILL PLACE NEW ORDERS. NO CURRENT NEEDS. CL IN REACH. WILL CTM.
--- NOTE | 2018-08-17 16:30 | NUR ---
PT LEAVING FOR DIALYSIS AT THIS TIME VIA W/C. NO CURRENT NEEDS. WILL CTM.
--- NOTE | 2018-08-17 20:02 | NUR ---
PT IN DIALYSIS.
--- NOTE | 2018-08-17 20:19 | NUR ---
PT RETURNED FROM DIALYSIS AT THIS TIME. ALERT/ORIENTED, REPORT RECIEVED FROM DIALYSIS NURSE. 4 LITERS FLUID REMOVED.
--- NOTE | 2018-08-17 23:32 | NUR ---
PT RESTING IN BED WITH EYES CLOSED AND HOME CPAP IN PLACE. MONITOR AND CPOC.
--- NOTE | 2018-08-18 01:45 | NUR ---
PT RESTING IN BED WITH RESPS EVEN/NONLABORED. NO DISTRESS. MONITOR AND CPOC.
[2018-08-18 03:55] VITALS: BP 135/89
[2018-08-18 06:34] LABS: ALBUMIN 3.6 g/dL (3.4-5.0); ANION GAP 19.4 mmol/L (8-16); BILIRUBIN - TOTAL 0.71 mg/dL (0.2-1.3); CALCIUM 10.4 mg/dL (8.5-10.1); CARBON DIOXIDE 28.1 mmol/L (21.0-32.0); CREATININE - SERUM 11.3 mg/dL (0.6-1.3); MAGNESIUM - SERUM 2.3 mg/dL (1.8-2.4); PHOSPHOROUS 7.6 mg/dL (2.5-4.9); POTASSIUM - SERUM 4.5 mmol/L (3.5-5.1); PROTEIN - SERUM 8.6 g/dL (6.4-8.2)
--- NOTE | 2018-08-18 07:30 | NUR ---
ASSESSMENT COMPLETED. ALERT AND ORIENTED. O2 AT 3 L/M PER NC.TELEMERTY SHOWS ST. SL TO LEFT HAND. LAVF.. TO DIAYLIS PER BED
[2018-08-18 07:32] LABS: BASOPHILS 0.5 % (0-2); EOSINOPHILS 0.9 % (0-7); HEMATOCRIT 31.4 % (42.0-54.0); HEMOGLOBIN 9.9 g/dL (13.5-17.5); IMMATURE GRANULOCYTES 0.2 % (0-5); LYMPHOCYTES 16.5 % (15-50); MCH 30.2 pg (26.0-34.0); MCHC 31.5 g/dL (31.0-37.0); MCV 95.7 fL (80.0-100.0); MEAN PLATELET VOLUME 10.7 fL (7.4-10.4); MONOCYTES 9.6 % (2-11); NEUTROPHILS 72.3 % (40-80); PLATELET COUNT 316 10x3/uL (130-400); RBC 3.28 10x6/uL (4.20-6.10); RDW 15.2 % (11.5-14.5); WBC 12.8 10x3/uL (4.8-10.8)
[2018-08-18 08:28] VITALS: BP 122/80
[2018-08-18 13:30] VITALS: Ht 185.4 cm; Wt 151.4 kg
[2018-08-18 16:48] VITALS: BP 105/61
--- NOTE | 2018-08-18 18:09 | NUR ---
UP IN BEDSIDE CHAIR. DENIES ANY NEEDS. ON AT 3 L/M PER NC. LAVF NOTED TO Gayle FA. WILL MONITOR
--- NOTE | 2018-08-18 18:19 | NUR ---
I have reviewed this patient and I concur with the Shift Assessment completed by the Licensed Practical Nurse today this shift.
--- NOTE | 2018-08-18 18:29 | MORECARE ---
CASE MANAGEMENT DISCHARGE SUMMARY PATIENT: LEVI MOODY UNIT: [id number] ADM DATE: 08/17/18 AGE: 47 : 66 SEX: M ROOM/BED: D.2127 AUTHOR: JAMES PATEL PHYSICIAN: REFERRING PHYSICIAN: SUNITA HINTON MD DATE OF SERVICE: 08/18/18 Discharge Plan Patient Name: LEVI MOODY [facility] : 1970 Planned Disposition: Anticipated Discharge Date: Discharge Date: Expected LOS: Initial Reviewer: [email or web address] Initial Review Date: 08/17/2018 Generated: 08/18/18 7:29 pm Coverage Notice Reviewer: [id number] - Surjit Rodriguez Notice Issued Date-Time: 08/18/2018 16:10 Notice Type: Medicare Outpatient Observation Notice Notice Delivered To: Patient Relationship to Patient: Train Gate Attendant Name: Delivery Method: HAND - Hand Delivered Darlyn Days: Prior Verbal Notification: Recipient Understood Notice: Yes Recipient Signature: Yes Med Rec Note Co-signed by Attending: Coverage Notice Comment: Patient Name: LEVI MOODY Page [phone] at 1829 All edits/amendments must be made on the electronic document DICTATION DATE: 08/18/181827 RESIDENT CARE MANAGER RN: NOEL 08/18/181827 RPT#: [id number] DC DATE: STATUS: ADM IN [facility] [address] [place] [address] END OF REPORT
--- NOTE | 2018-08-18 19:29 | NUR ---
INTRODUCED SELF TO PATIENT, PATIENT UP IN CHAIR IN ROOM. NO NEEDS AT THIS TIME.
[2018-08-18 19:52] VITALS: BP 91/55
[2018-08-18 23:55] VITALS: BP 94/62
[2018-08-19 03:55] VITALS: BP 95/50
--- NOTE | 2018-08-19 04:10 | NUR ---
PATIENT CONTINUES TO REMOVE FISHER SEAL/REFUSING.
[2018-08-19 05:40] LABS: BASOPHILS 0.4 % (0-2); EOSINOPHILS 1.3 % (0-7); HEMATOCRIT 28.9 % (42.0-54.0); HEMOGLOBIN 9.2 g/dL (13.5-17.5); IMMATURE GRANULOCYTES 0.3 % (0-5); LYMPHOCYTES 15.2 % (15-50); MCH 30.2 pg (26.0-34.0); MCHC 31.8 g/dL (31.0-37.0); MCV 94.8 fL (80.0-100.0); MEAN PLATELET VOLUME 10.5 fL (7.4-10.4); MONOCYTES 12.2 % (2-11); NEUTROPHILS 70.6 % (40-80); PLATELET COUNT 276 10x3/uL (130-400); RBC 3.05 10x6/uL (4.20-6.10); RDW 15.2 % (11.5-14.5); WBC 11.6 10x3/uL (4.8-10.8)
[2018-08-19 05:51] LABS: ANION GAP 15.9 mmol/L (8-16); CALCIUM 9.4 mg/dL (8.5-10.1); CARBON DIOXIDE 28.6 mmol/L (21.0-32.0); CREATININE - SERUM 10.3 mg/dL (0.6-1.3); POTASSIUM - SERUM 4.5 mmol/L (3.5-5.1)
[2018-08-19 08:37] VITALS: BP 99/60
[2018-08-19] MEDS ORDERED: ZITHROMAX250 MG PO (12:02)
[2018-08-19 12:13] VITALS: BP 110/59
--- NOTE | 2018-08-19 13:15 | NUR ---
DC GIVEN TO PT
--- NOTE | 2018-08-19 13:29 | NUR ---
DC HOME PER PERSONAL CAR
--- NOTE | 2018-08-19 17:15 | MORECARE ---
CASE MANAGEMENT DISCHARGE SUMMARY PATIENT: LEVI MOODY UNIT: [id number] ADM DATE: 08/17/18 AGE: 47 : 66 SEX: M ROOM/BED: D.2127 AUTHOR: JAMES PATEL PHYSICIAN: REFERRING PHYSICIAN: SUNITA HINTON MD DATE OF SERVICE: 08/19/18 Discharge Plan Patient Name: LEVI MOODY [facility] [facility] 1970 Planned Disposition: Home Anticipated Discharge Date: 08/19/18 Discharge Date: 08/19/2018 Expected LOS: 2 Initial Reviewer: [email or web address] Initial Review Date: 08/17/2018 Generated: 08/19/18 6:15 pm Coverage Notice Reviewer: [email or web address] - Surjit Rodriguez Notice Issued Date-Time: 08/18/2018 16:10 Notice Type: Medicare Outpatient Observation Notice Notice Delivered To: Patient Relationship to Patient: Reservoir Engineering Consultant Name: Delivery Method: HAND - Hand Delivered Darlyn Days: Prior Verbal Notification: Recipient Understood Notice: Yes Recipient Signature: Yes Med Rec Note Co-signed by Attending: Coverage Notice Comment: Last DP export: 08/18/18 5:29 pm Patient Name: LEVI MOODY Page [phone] at 1715 All edits/amendments must be made on the electronic document DICTATION DATE: 08/19/181713 NAVAL MARINE ENGINEER: NOEL 08/19/181713 RPT#: [id number] DC DATE:08/19/18 STATUS: DIS IN [facility] [id number] [place] [address] END OF REPORT
== END 2018-08-19 13:29 | disposition home or self-care (01) ==
LOC: D.ER 10:13 → D.EDHOLD 11:02 → OBSVTIME 11:02 → D.M2 12:02
PROVIDERS: Family Medicine; ADMIT Internal Medicine Nephrology; ATTEND Internal Medicine Nephrology
DX: I13.2 Hypertensive heart and chronic kidney disease with heart failure and with stage 5 chronic kidney disease, or end stage renal disease (principal); N18.6 End stage renal disease; I50.9 Heart failure, unspecified; E11.22 Type 2 diabetes mellitus with diabetic chronic kidney disease; K21.9 Gastro-esophageal reflux disease without esophagitis